=== PATIENT | male | born 1985 | race Two or more races ===

== ENCOUNTER 2018-06-18 20:27 | Emergency (ER) | payer BC, OTHER ==
[~2018-06-18] VITALS: Ht 170.2 cm; Wt 112.5 kg
[2018-06-18] MEDS ORDERED: KETOROLAC TROMETH 60MG/2ML VIAL IM ONE (22:30)
[2018-06-18] MEDS ORDERED: methylPREDNISolone SOD SUCC 125 MG/2 ML VL IM ONE (22:30)
[2018-06-18 23:41] VITALS: BP 131/86
== END 2018-06-18 23:53 | disposition home or self-care (01) ==
LOC: ER 20:45
DX: S73.102A Unspecified sprain of left hip, initial encounter (principal); W19.XXXA Unspecified fall, initial encounter; Y93.89 Activity, other specified; Y99.8 Other external cause status; Y92.89 Other specified places as the place of occurrence of the external cause
CPT/HCPCS: 73502; 96372; 99283; J1885; J2930

== ENCOUNTER 2022-02-16 19:51 | Emergency (ER) | payer BC ==
[~2022-02-16] VITALS: Ht 170.2 cm; Wt 118.0 kg
[2022-02-16 20:41] VITALS: BP 141/102
[2022-02-17] MEDS ORDERED: IBUP800T27 PO (00:28)
[2022-02-17] MEDS ORDERED: CYCL-837 PO (00:28)
[2022-02-17] MEDS ORDERED: KETOROLAC TROMETH 60MG/2ML VIAL IM ONE (00:30)
== END 2022-02-17 00:46 | disposition home or self-care (01) ==
LOC: ER 19:51
DX: S29.012A Strain of muscle and tendon of back wall of thorax, initial encounter (principal); Z79.1 Long term (current) use of non-steroidal anti-inflammatories (NSAID); Z79.899 Other long term (current) drug therapy; X50.1XXA Overexertion from prolonged static or awkward postures, initial encounter; Y93.89 Activity, other specified; Y92.89 Other specified places as the place of occurrence of the external cause; Y99.8 Other external cause status
CPT/HCPCS: 96372; 99283; J1885